=== PATIENT | female | born 1990 | race African-American/Black ===

== ENCOUNTER 2019-08-19 09:35 | Inpatient (IN) | payer MEDICARE, MEDICAID ==
[~2019-08-19] VITALS: Ht 160 cm; Wt 75.3 kg
[2019-08-19 10:45] VITALS: BP 116/72
--- NOTE | 2019-08-19 11:20 | NUR ---
A 29, admitted to , under the services of MALINI Smart DO with a diagnosis of ALCOHOL WITHDRAWAL. Chief complaint is WITHDRAWAL. Patient arrived via ambulatory from [place]. Monitor applied. Initial assessment completed. Vital signs taken and recorded. MALINI SMART DO notified of admission to the unit. Orders received. See assessment for past medical history, medications and allergies. Patient and/or family oriented to unit. [facility] visitation policy reviewed. Clothing/patient valuable form completed. ARRON ELIZABETH
--- NOTE | 2019-08-19 11:23 | NUR ---
PATIENT MEETS [facility]. CINA=18,CIWA=18. PATIENT IS WANTING RESIDENTIAL TREATMENT AT [facility] FOR HER AFTERCARE PLAN. ARNOLD BRASHER B.A. DISTRIBUTED GENERATION PROJECT MANAGER
[2019-08-19 12:00] VITALS: BP 114/70
--- NOTE | 2019-08-19 13:30 | NUR ---
PT REFUSED TO ALLOW ANYONE TO CK HER SKIN . PT STATES " I HAVE NO OPEN WOUNDS "
--- NOTE | 2019-08-19 13:54 | NUR ---
PT REFUSES TO HAVE IV STARTED DR CORRIGAN NOTIFIED
[2019-08-19 14:02] LABS: BASO # 0.1 10*3/uL (0.0-0.1); BASO % 0.7 % (0.0-1.0); EOS # 0.2 10*3/uL (0.0-0.4); EOS % 3.2 % (1.0-4.0); HEMATOCRIT 39.3 % (37.0-47.0); HEMOGLOBIN 13.1 g/dl (12.0-16.0); LYMPH % 26.8 % (27.0-41.0); MEAN CELL VOLUME 96.6 fl (81.0-99.0); MEAN CORPUSCULAR HGB 32.2 pg (27.0-31.0); MEAN CORPUSCULAR HGB CONC 33.3 g/dl (33.0-37.0); MONO # 0.5 10*3/uL (0.1-1.0); MONO % 6.6 % (3.0-9.0); NEUT # 4.6 10*3/uL (2.3-7.9); NEUT % 62.3 % (47.0-73.0); PLATELET COUNT AUTOMATED 214 10*3/uL (130-400); RED BLOOD COUNT 4.07 10*6/uL (4.10-5.10); RED CELL DISTRI WIDTH 13.7 % (0-14.5); WHITE BLOOD COUNT 7.4 10*3/uL (4.8-10.8)
[2019-08-19 14:19] LABS: INTERNATIONAL NORM RATIO 1.1 (2.0-3.5)
[2019-08-19 14:22] LABS: ALBUMIN 3.1 gm/dl (3.1-4.5); ALKALINE PHOSPHATASE 55 U/L (45-117); BUN 12 mg/dl (7-24); CHLORIDE 109 mmol/L (98-107); CREATININE 0.74 mg/dL (0.55-1.02); POTASSIUM 3.7 mmol/L (3.5-5.1); SGOT/AST 9 IU/L (3-35); SGPT/ALT 17 U/L (12-78); SODIUM 140 mmol/L (136-145); TOTAL PROTEIN 6.5 gm/dL (6.4-8.2)
[2019-08-19 14:33] LABS: BETA-HCG, QUANT < 1.0 mIU/mL (1-3); ETHYL ALCOHOL < 3.0 mg/dl (<3)
[2019-08-19 14:45] LABS: CLARITY CLEAR (CLEAR); COLOR YELLOW (YELLOW); URINE AMPHETAMINES < 1000 (1000ng/ml); URINE BARBITURATES < 200 (200ng/ml); URINE BENZODIAZEPINES > 200 (200ng/ml); URINE CANNABINOIDS (THC) < 50 (50ng/ml); URINE COCAINE > 300 (300ng/ml); URINE METHADONE < 300 (300ng/ml); URINE OPIATES < 300 (300ng/ml)
[2019-08-19 14:46] LABS: PH 7.5 (5.0-9.0); UROBILINOGEN 0.2 E.U./dl (0.2-1.0)
[2019-08-19 14:49] LABS: URINE PHENCYCLIDINE < 25 (25ng/ml)
[2019-08-19 14:51] LABS: BACTERIA 1+; BILIRUBIN NEGATIVE (NEGATIVE); BLOOD NEGATIVE (NEGATIVE); GLUCOSE NEGATIVE (NEGATIVE); KETONE NEGATIVE (NEGATIVE); LEUKO ESTERASE NEGATIVE (NEGATIVE); NITRITE NEGATIVE (NEGATIVE)
[2019-08-19 14:52] LABS: EPITHELIAL CELLS 0-2
[2019-08-19 16:00] VITALS: BP 117/57
[2019-08-19 20:00] VITALS: BP 123/57
--- NOTE | 2019-08-19 20:08 | NUR ---
PATIENT AMBULATING IN HALLWAY. NO DISTRESS NOTED. DENIES ANY NEEDS AT THIS TIME. WILL MONITOR
--- NOTE | 2019-08-19 21:32 | NUR ---
PRN MOTRIN GIVEN FOR PT COMPLAINTS OF MUSCLE ACHES. CALL LIGHT WITHIN REACH, WILL MONITOR
--- NOTE | 2019-08-19 23:00 | NUR ---
PRN MEDICATION APPAERS EFFECTIVE, PT SLEEPING
[2019-08-20] VITALS: BP 113/68
[2019-08-20 08:00] VITALS: BP 90/60
--- NOTE | 2019-08-20 08:00 | NUR ---
Patient resting quietly with no c/o discomfort. Respirations easy and regular. Vital signs stable. No overt distress. TIESHA JAMES
[2019-08-20] MEDS ORDERED: ACYCLOVIR400 MG PO (10:18)
[2019-08-20] MEDS ORDERED: CLINDAMYCIN PHO60 ML T (10:24)
[2019-08-20 12:00] VITALS: BP 120/64
--- NOTE | 2019-08-20 12:12 | NUR ---
PATIENT IS UNABLE TO BE ACCEPTED AT [facility] DUE TO HER INSURANCE. [place] STAFF SPOKE TO PATIENT ABOUT [facility]. [place] [facility]AFF SENT REFERRAL TO [facility]. [place] [facility]FF SPOKE TO [facility] AND THEY ARE REVIEWING HER ASSESSMENT. [place] STAFF WILL KEEP IN CONTACT WITH [facility]. ARNOLD BRASHER B.A. CONSULTANT INTERNSHIP
[2019-08-20 16:00] VITALS: BP 103/46
--- NOTE | 2019-08-20 17:07 | NUR ---
MEDICATED WITH PO TYLENOL ORDERED PER PT REQUEST FOR C/O HEADACHE.
--- NOTE | 2019-08-20 19:03 | NUR ---
DR JEAN NOTIFIED OF CONSULT.
[2019-08-20 20:00] VITALS: BP 114/53
--- NOTE | 2019-08-20 20:40 | NUR ---
PT. STATED SHE LOST HER PLASTIC NICOTINE CIGARETTE. PHARMACY NOTIFIED, AWAITING A NEW ONE.
[2019-08-21] VITALS: BP 115/76
[2019-08-21 08:00] VITALS: BP 123/73
--- NOTE | 2019-08-21 08:00 | NUR ---
Patient resting quietly with no c/o discomfort. Respirations easy and regular. Vital signs stable. No overt distress. TIESHA JAMES
--- NOTE | 2019-08-21 11:45 | NUR ---
[facility] STAFF IN TO SEE PATIENT. PATIENT COMPLETED PHONE ASSESSMENT WITH ELO[facility]. ARNOLD BRASHER B.A. TUBER MACHINE CUTTER
[2019-08-21 12:00] VITALS: BP 118/51
--- NOTE | 2019-08-21 14:03 | NUR ---
[facility] STAFF SPOKE WITH [facility]. [facility] WILL ACCEPT PATIENT ONCE THEY RECEIVE DISCHARGE SUMMARY FROM HOSPITAL. [place] STAFF WILL FAX TO FACILITY ONCE PATIENT IS DISCHARGED. [place] STAFF WILL SET UP TRANSPORATION. ANROLD BRASHER B.A. [place]
[2019-08-21 16:00] VITALS: BP 131/67
--- NOTE | 2019-08-21 16:40 | NUR ---
MEDICATED WITH PO TYLENOL ORDERED PER PT REQUEST FOR C/O HEADACHE.
[2019-08-21 20:00] VITALS: BP 134/82
--- NOTE | 2019-08-21 20:00 | NUR ---
PT RESTING ON BED WITH EASY RESPIRATIONS. PT REPORTS NAUSEA AND STOMACH CRAMPS. BENTYL AND ZOFRAN GIVEN PER ORDERS. NO ACUTE DISTRESS AT THIS TIME. PT DENIES ANY DISTRESS. RESPIRATIONS EASY AND NON LABORED. RN TO CONTINUE TO MONITOR
[2019-08-22] VITALS: BP 112/61
--- NOTE | 2019-08-22 05:25 | NUR ---
PATIENT REFUSED MORNING LABS.
[2019-08-22 08:00] VITALS: BP 119/72
--- NOTE | 2019-08-22 08:30 | NUR ---
Patient resting quietly with no c/o discomfort. Respirations easy and regular. Vital signs stable. No overt distress. XAVIER RUIZ R
[2019-08-22] MEDS ORDERED: DOXYCYCLINE MO100 M1 PO (10:51)
[2019-08-22] MEDS ORDERED: ATARAX,VISTARIL50 MG PO (10:51)
--- NOTE | 2019-08-22 15:01 | NUR ---
Discharge instructions reviewed with patient/family. Patient receptive and verbalizes understanding. Follow-up care arranged. Written instructions given to patient/family. XAVIER RUIZ
== END 2019-08-22 15:01 | disposition home or self-care (01) | DRG 897 ==
LOC: 4E 09:35
PROVIDERS: Internal Medicine; ADMIT Internal Medicine
DX: F10.232 Alcohol dependence with withdrawal with perceptual disturbance (principal); F11.23 Opioid dependence with withdrawal; F14.23 Cocaine dependence with withdrawal; Y90.9 Presence of alcohol in blood, level not specified; J45.909 Unspecified asthma, uncomplicated; L98.8 Other specified disorders of the skin and subcutaneous tissue; Z83.3 Family history of diabetes mellitus; Z72.0 Tobacco use